=== PATIENT | female | born 1950 | race Caucasian/White ===

== ENCOUNTER 2017-01-28 05:29 | Inpatient (IN) | payer OTHER, MEDICARE ==
[~2017-01-28] VITALS: Ht 165.1 cm; Wt 67.0 kg
[~2017-01-28 05:29] MED LIST: ASCORBIC ACID500 M3 PO; ASPIR 8181 M1 PO; ATORVASTATIN CA20 MG PO
[2017-01-28] MEDS ORDERED: TYLENOL REGULA325 MG PO (06:01)
[2017-01-28 06:05] VITALS: BP 130/62
[2017-01-28 12:13] VITALS: BP 139/65
[2017-01-28 15:02] VITALS: BP 138/64
[2017-01-28 19:25] VITALS: BP 154/67
[2017-01-28 23:13] VITALS: BP 133/60
[2017-01-29 03:41] VITALS: BP 140/66
[2017-01-29 05:52] LABS: EOSINOPHIL (%) 0.1 % (0-5); HEMATOCRIT 34.2 % (36.0-46.0); IMMATURE GRANULOCYTE (%) 0.5 % (0.0-0.7); IMMATURE GRANULOCYTE COUNT 0.1 K/uL; INSTRUMENT ABS NEUTROPHIL CT 9.9 K/uL; MCH 31.3 PG (29.0-34.0); MCHC 33.6 G/DL (30.0-36.0); MCV 93.2 FL (83-99); MONOCYTE (%) 9.1 % (3-12); MONOCYTE COUNT 1.2 K/uL (0-0.8); NEUTROPHIL (%) 74.9 % (45-76); NEUTROPHIL COUNT 9.9 K/uL (1.8-6.4); PLATELET COUNT 206 K/uL (156-360); RBC DIS.WIDTH-CV 12.9 % (11.8-14.6); RBC DIS.WIDTH-SD 44.3 % (39-53); RED BLOOD COUNT 3.67 M/uL (3.80-5.20); WHITE BLOOD COUNT 13.2 K/uL (4.1-10.2)
[2017-01-29 06:14] LABS: ANION GAP 6 MEQ/L (2-14); CHLORIDE 103 MEQ/L (99-109); GFR ESTIMATE (CALCULATED) > 59 mL/min/; GLUCOSE 106 mg/dL (70-99); POTASSIUM 4.5 MEQ/L (3.7-5.4); SAMPLE HEMOLYSIS CHECK 0; SAMPLE ICTERIC CHECK 0; SAMPLE LIPEMIA CHECK 0; SODIUM 138 MEQ/L (136-147); UREA NITROGEN (BUN) 9 mg/dL (9-23)
[2017-01-29 06:50] VITALS: BP 113/57
[2017-01-29 11:44] VITALS: BP 101/51
[2017-01-29 15:16] VITALS: BP 131/61
[2017-01-29 20:00] VITALS: BP 128/61
[2017-01-29 23:15] VITALS: BP 110/53
[2017-01-30 03:28] VITALS: BP 132/62
[2017-01-30 03:35] VITALS: BP 132/62
[2017-01-30 06:11] LABS: BASOPHIL COUNT 0.1 K/uL (0-0.1); EOSINOPHIL (%) 0.6 % (0-5); EOSINOPHIL COUNT 0.1 K/uL (0-0.3); HEMATOCRIT 32.3 % (36.0-46.0); IMMATURE GRANULOCYTE (%) 0.6 % (0.0-0.7); IMMATURE GRANULOCYTE COUNT 0.1 K/uL; INSTRUMENT ABS NEUTROPHIL CT 7.2 K/uL; LYMPHOCYTE COUNT 1.8 K/uL (1.0-2.8); MCH 29.8 PG (29.0-34.0); MCHC 31.9 G/DL (30.0-36.0); MCV 93.4 FL (83-99); MEAN PLAT.VOLUME 10.8 uM^3 (9.5-12.4); MONOCYTE (%) 10.1 % (3-12); NEUTROPHIL (%) 70.5 % (45-76); NEUTROPHIL COUNT 7.2 K/uL (1.8-6.4); PLATELET COUNT 175 K/uL (156-360); RBC DIS.WIDTH-CV 12.9 % (11.8-14.6); RED BLOOD COUNT 3.46 M/uL (3.80-5.20); WHITE BLOOD COUNT 10.1 K/uL (4.1-10.2)
[2017-01-30 06:36] LABS: ANION GAP 5 MEQ/L (2-14); CHLORIDE 102 MEQ/L (99-109); GFR ESTIMATE (CALCULATED) > 59 mL/min/; GLUCOSE 100 mg/dL (70-99); POTASSIUM 4.1 MEQ/L (3.7-5.4); SAMPLE HEMOLYSIS CHECK 0; SAMPLE ICTERIC CHECK 0; SAMPLE LIPEMIA CHECK 0; SODIUM 139 MEQ/L (136-147); UREA NITROGEN (BUN) 11 mg/dL (9-23)
[2017-01-30 07:10] VITALS: BP 133/60
[2017-01-30 11:00] VITALS: BP 102/50
== END 2017-01-30 16:03 | disposition home or self-care (01) | DRG 743 ==
LOC: SDC 05:29 → 2SOUTH 10:32 → 2EAST 10:32 → ENRESERV 10:32 → 2EAST 12:02 → SDC 15:11 → 2EAST 01-30 16:03
PROVIDERS: Obstetrics & Gynecology Gynecology
DX: N81.4 Uterovaginal prolapse, unspecified (principal); N95.2 Postmenopausal atrophic vaginitis; E78.5 Hyperlipidemia, unspecified; Z87.891 Personal history of nicotine dependence; Z78.0 Asymptomatic menopausal state; N72 Inflammatory disease of cervix uteri
CPT/HCPCS: 80048; 85025; 87086; 88302; 88307; C1781; J0330; J0690; J1100; J1170; J1650; J1885; J2405; J2710; J3010; J7120; Q0175

== ENCOUNTER 2017-08-13 05:35 | Day surgery (SDC) | payer OTHER, MEDICARE ==
[~2017-08-13] VITALS: Ht 162.6 cm; Wt 67.1 kg
[~2017-08-13 05:35] MED LIST changes: +CO Q-1010 MG PO; +MULTI-VITAMIN1 EAC4 PO; +TYLENOL REGULA325 MG PO
[2017-08-13 06:17] VITALS: BP 99/49
[2017-08-13] MEDS ORDERED: HYDROCODON-ACE1 EAC7 PO (11:29)
[2017-08-13 12:30] VITALS: BP 137/63
[2017-08-13 14:28] VITALS: BP 120/59
== END 2017-08-13 14:30 | disposition home or self-care (01) ==
LOC: SDC 05:35 → NUC 07:00 → SDC 07:00
DX: C50.411 Malignant neoplasm of upper-outer quadrant of right female breast (principal); E78.5 Hyperlipidemia, unspecified; Z17.0 Estrogen receptor positive status [ER+]; Z87.891 Personal history of nicotine dependence; Z79.82 Long term (current) use of aspirin
CPT/HCPCS: 78195; 88305; 88307; A9541; J0690; J1100; J1170; J1885; J2250; J2405; S0020